=== PATIENT | female | born 1995 | race Caucasian/White ===

== ENCOUNTER → 2016-06-25 | Outpatient (CLI) | payer OTHER | LOC: BHSO 11:35 | DX: F41.1 Generalized anxiety disorder (principal) ==

== ENCOUNTER → 2016-09-21 | Outpatient (CLI) | payer OTHER | LOC: BHSO 12:47 | DX: F41.1 Generalized anxiety disorder (principal) ==

== ENCOUNTER → 2016-11-01 | Outpatient (CLI) | payer OTHER | LOC: BHSO 15:03 | DX: F41.1 Generalized anxiety disorder (principal) ==